=== PATIENT | male | born 1975 | race Two or more races ===

== ENCOUNTER 2025-01-31 11:52 | Emergency (ER) | payer OTHER, SELFPAY ==
[2025-01-31 11:57] VITALS: BMI 28.1
--- NOTE | 2025-01-31 12:01 | XR_ITS ---
Examination: Hand, left Technique: Hand AP, oblique, lateral 3 views Date and time of exam: 01/31/2025 INDICATION: Smashed left second digit in door, bleeding COMPARISON: None FINDINGS: Open comminuted fracture deformity of the tuft of the second distal phalanx with adjacent displaced bone fragments, and distal soft tissue amputation and nailbed injury are identified. There is diffuse soft tissue swelling of the index finger. Overlying gauze material noted. The remainder of the hand shows no evidence for acute fracture. No joint dislocation. No apparent osteoarthritic changes. IMPRESSION: Open comminuted fracture deformity with displaced bone fragments at the tuft of the second distal phalanx, including distal soft tissue amputation and nail injury.
--- NOTE | 2025-01-31 12:11 | PD.EDHAND ---
Upper Extremity Injury RME/HPI General Chief Complaint: Hand/Wrist Problems Stated Complaint: SMASHED FINGER Time Seen by Provider: 01/31/25 11:58 Source: patient Arrival date/time: 01/31/25 11:52 49-year-old male with no known medical history presents to the emergency room with a chief complaint of smashing his left index finger on the car door x 2 hours Mode of arrival: ambulatory Limitations: no limitations Related Data Previous Rx's ?Medication ?Instructions ?Recorded cephalexin 500 mg capsule 500 mg PO BID 7 days #14 caps 01/31/25 Allergies Allergy/AdvReac Type Severity Reaction Status Date / Time No Known Allergies Allergy Verified 01/31/25 12:01 Review of Systems Review of Systems Systems Reviewed: All systems reviewed, normal except as documented Constitutional Constitutional: Reports system reviewed and no additional complaints, except as documented, Denies fatigue, Denies fever(s), Denies headache(s) and Denies weakness Eyes Eyes: Reports system reviewed and no additional complaints, except as documented, Denies blurry vision and Denies change in vision ENT Ears, Nose, Mouth, and Throat: Reports system reviewed and no additional complaints, except as documented, Denies otalgia, Denies headache(s), Denies nasal congestion, Denies throat swelling and Denies vertigo Cardiovascular Cardiovascular: Reports system reviewed and no additional complaints, except as documented, Denies chest pain, Denies dyspnea and Denies dyspnea on exertion Respiratory Respiratory: Reports system reviewed and no additional complaints, except as documented, Denies chest congestion, Denies cough, Denies dyspnea, Denies dyspnea on exertion and Denies wheezing Gastrointestinal Gastrointestinal: Reports system reviewed and no additional complaints, except as documented, Denies abdominal pain, Denies cramping, Denies nausea and Denies vomiting Genitourinary Genitourinary: Reports system reviewed and no additional complaints, except as documented, Denies dysuria and Denies hematuria Musculoskeletal Musculoskeletal: Reports system reviewed and no additional complaints, except as documented, Reports arthralgias, Denies back pain, Reports joint swelling and Reports limited range of motion Integumentary/Breasts Skin/Breast: Reports system reviewed and no additional complaints, except as documented and Denies wounds Neurologic Neurologic: Reports system reviewed and no additional complaints, except as documented, Denies confusion, Denies headache(s), Denies lack of coordination, Denies vertigo and Denies weakness Psychiatric Psychiatric: Reports system reviewed and no additional complaints, except as documented, Denies anxiety, Denies confusion, Denies depression, Denies paranoia, Denies suicidal ideation and Denies tactile hallucinations Endocrine Endocrine: Reports system reviewed and no additional complaints, except as documented and Denies fatigue Hematologic/Lymphatic Hematologic/Lymphatic: Reports system reviewed and no additional complaints, except as documented and Denies lymphadenopathy Allergic/Immunologic Allergic/Immunologic: Reports system reviewed and no additional complaints, except as documented, Denies throat swelling, Denies urticaria and Denies wheezing Past Medical History Social History SMOKING STATUS: Never smoker ED Exam General Limitations: Present no limitations General appearance: Present alert and in no apparent distress Head Head exam: Present atraumatic Eye Eye exam: Present normal appearance, PERRL and EOMI ENT ENT exam: Present normal exam, normal oropharynx and mucous membranes moist Neck Neck exam: Present normal inspection, full ROM and trachea midline Chest Chest inspection: Present normal inspection and symmetric chest wall rise Respiratory Respiratory exam: Present normal lung sounds bilaterally Cardiovascular Cardiovascular exam: Present regular rate, normal rhythm and normal heart sounds Abdominal Exam Abdominal exam: Present soft and normal bowel sounds Extremities Exam Extremities exam: Present normal inspection and full ROM Expanded Upper Extremity Exam Shoulder exam: Present normal inspection Arm exam: Present normal inspection Elbow exam: Present normal inspection Forearm/Wrist exam: Present normal inspection Hand exam: Present tenderness, swelling, laceration, skin avulsion and nail avulsion Hand L/R front image:  1. laceration, nail injury (#) and avulsion Back Exam Back exam: Present normal inspection and full ROM Neurological Exam Neurological exam: Present alert, oriented X3 and CN II-XII intact Psychiatric Psychiatric exam: Present normal affect and normal mood Skin Skin exam: Present warm, dry, intact and normal color Course Quality Measures none Orders Category Date Time Status Wound Care X1 Care 01/31/25 13:21 Completed XR hand comp LT min 3V Stat Exams 01/31/25 12:01 Completed ceFAZolin [Ancef] 1 gm Med 01/31/25 13:22 Discontinued Sterile Water 2.5 ml IM X1 Extremity Injury MDM Narrative MDM Narrative:: 49-year-old male with no known medical history presents to the emergency room with a chief complaint of smashing his left index finger on the car door x 2 hours Patient is hemodynamically stable and in no apparent distress Physical examination shows left index finger smashing injury with nail avulsion. The nail is completely removed and so is part of the upper finger. There is some soft tissue amputation and injury to the nailbed. An x-ray of the extremity was completed and shows an open comminuted fracture deformity with displaced bone fragments at the tuft of the second distal phalanx. There is no area to suture or approximate the wound. The wound was wrapped in a dressing of Surgicel to help stop the bleeding and a tight dressing was placed around the injury. A finger splint was put around the injury. Patient was educated to follow-up with his Workmen's Comp. as this occurred on the job site. I also given the information to [facility] fracture [facility]. Patient was discharged and educated to follow-up with primary care provider in the next 24 to 48 hours and return to the emergency room for any evidence of worsening signs or symptoms Patient data External records reviewed:: [facility] previous records Clinical information provided by:: patient Social determinants that could affect healthcare access:: none Patient has the following chronic illnesses:: No chronic illness How is presenting disease/condition affected by chronic disease/condition?: no chronic disease Evaluation data The following diagnostics were reviewed and interpreted by me:: lab results and radiology exam(s) Lab and/or radiology exams considered but not ordered:: Labs and radiology exams considered and ordered Interpretation Summary: N/A Medications / Prescriptions Medications or Prescriptions considered but not ordered:: Medication given Medication administrations:: Medication Administration History Discontinued Medications Cefazolin Sodium 1 gm/ Sterile (Water 2.5 ml) 0 gm IM X1 ONE Stop: 01/31/25 13:23 Last Admin: 01/31/25 14:10 Dose: 1,000 dose Documented By: Medication given Consultations Consultation(s) initiated? (list below): No Diagnosis Upper Extremity Injury Differential Diagnosis: finger sprain, fracture of hand and other (Open comminuted fracture of the distal phalanx of finger) Most likely diagnosis given after review of the tests above:: Open comminuted fracture of the distal phalanx of finger Admission Indicated Admission indicated?: not indicated Admission Request Was there a request for admission?: No Disposition Plan Disposition Plan: Discharge Discharge Attestation Discharge Attestation: The patient and all family members were given an opportunity to ask questions and understood the discharge instructions. Discharge instructions specifically effects, indications for sooner follow up or return to the emergency department, and the expected course of current diagnosis. Patient condition: Stable Discharge Plan Plan Patient Disposition: HOME (Self Care) Discharge Disposition comment: Stable Prescriptions/Referrals Prescriptions/Med Rec: New cephalexin 500 mg capsule 500 mg PO BID 7 Days Qty: 14 0RF Problem List Clinical Impression: Open comminuted fracture of distal phalanx of finger Patient/Caregiver Discharge Instructions Education Materials: ED Fracture, Finger, Open Additional Instructions: Please follow-up with your primary care provider in the next 24 to 48 hours Your x-rays showed an open fracture of your left pointing finger. You will need to follow-up with your Workmen's Comp. You can follow-up with [facility] [address] [place] [id number] Phone:? Print Language: [place] Stand Alone Forms: Rosie Award Info., Work/School Release, Patient Portal Info Letter PA/ALMITA Supervising Physician PA/[employer]IST Supervising Physician: Dr. Bangura
[2025-01-31] MEDS: ceFAZolin 1 GM, Sterile Water 2.5 ML IM (14:10)
== END 2025-01-31 14:58 | disposition home or self-care (01) ==
LOC: SERX 13:43
PROVIDERS: Emergency Provider Nurse Practitioner Family; PCP Family Medicine
DX: S62.631B Displaced fracture of distal phalanx of left index finger, initial encounter for open fracture (principal); W23.0XXA Caught, crushed, jammed, or pinched between moving objects, initial encounter
CPT/HCPCS: 73130; 96372; 99283; A4216; J0690